=== PATIENT | female | born 2000 | race Caucasian/White ===

== ENCOUNTER 2023-05-25 09:48 | Outpatient (CLI) | payer BC | END 2023-05-25 09:49 | disposition home or self-care (01) | LOC: CSHLAB 09:48 | PROVIDERS: ATTEND Obstetrics & Gynecology | DX: Z01.812 Encounter for preprocedural laboratory examination (principal); O02.1 Missed abortion | CPT/HCPCS: 85027; 86850; 86900; 86901 ==